=== PATIENT | female | born 1950 | race Two or more races ===

== ENCOUNTER 2021-09-28 11:55 | Inpatient (IN) | payer MEDICAID, OTHER ==
[~2021-09-28] VITALS: Ht 144.8 cm; Wt 72.3 kg
[2021-09-28 14:21] LABS: Basophils # (auto) 0.1 10 ^3/uL (0-0.2); Basophils % (auto) 1.1 % (0.0-2.0); Eosinophils # (auto) 0.1 10 ^3/uL (0-0.8); Hematocrit 44.3 % (36.0-46.0); Hemoglobin 14.7 g/dL (12.2-16.2); Lymphocytes # (auto) 2.1 10 ^3/uL (0.4-5.4); Lymphocytes % (auto) 26.2 % (10.0-50.0); Mean Corpuscular Hemoglobin 31.7 pg (28.0-32.0); Mean Corpuscular Hgb Conc. 33.1 g/dL (32.0-36.0); Mean Corpuscular Volume 95.9 fL (80.0-100.0); Monocytes # (auto) 0.6 10 ^3/uL (0-1.3); Monocytes % (auto) 7.6 % (0.0-12.0); Neutrophils # (auto) 5.1 10 ^3/uL (1.6-8.6); Neutrophils % (auto) 64.1 % (37.0-80.0); Nucleated Red Blood Cells % 0.1 %; Red Blood Cells 4.62 10^6/uL (4.0-5.20); Red Cell Distribution Width 14.7 % (11.8-14.3)
[2021-09-28 14:43] LABS: Albumin 3.9 g/dL (3.4-5.0); Calcium 9.1 mg/dL (8.5-10.1); Potassium 4.3 mmol/L (3.5-5.1)
[2021-09-28 14:48] LABS: BUN/Creatinine Ratio 33.3; Bilirubin, Total 0.4 mg/dL (0.2-1.0); Total Protein 7.6 g/dL (6.4-8.2)
[2021-09-28] MEDS ORDERED: ONDANSETRON HCL 4 MG/2 ML VIAL IV ONE (15:30)
[2021-09-28] MEDS ORDERED: MORPHINE SULFATE INJ 2 MG/ml SYRG IV ONE (15:30)
[2021-09-28] MEDS ORDERED: MORPHINE SULFATE 4 MG/ML SYR/VIAL IV PRN (19:00)
[2021-09-28] MEDS ORDERED: ONDANSETRON HCL 4 MG/2 ML VIAL IV PRN (19:00)
[2021-09-28] MEDS ORDERED: ACETAMINOPHEN 325 MG TAB PO PRN ×2 (19:00)
[2021-09-28] MEDS ORDERED: TEMAZEPAM 15 MG CAP PO PRN (19:00)
[2021-09-28] MEDS ORDERED: hydrALAZINE HCL 20 MG/ML VL IV PRN (19:00)
[2021-09-28] MEDS ORDERED: DOCUSATE SOD 100 MG CAP PO PRN (19:00)
[2021-09-28 19:28] LABS: Urine Bacteria MOD /hpf (None Seen); Urine Blood Negative /uL (Negative); Urine Specific Gravity 1.007 (1.001-1.035); Urine WBC 10 /hpf (0 - 5)
[2021-09-28 19:59] LABS: Bilirubin, Direct 0.2 mg/dL (0-0.2); Bilirubin, Total 0.6 mg/dL (0.2-1.0)
[2021-09-28] MEDS: ATORVASTATIN 20 MG TAB PO SCH (21:58)
[2021-09-28] MEDS: LACTATED RINGER'S 1,000 ML IV SCH (21:58)
[2021-09-29 00:40] VITALS: BP 118/63
[2021-09-29] MEDS ORDERED: ATOR10TA52 PO (01:56)
[2021-09-29] MEDS: HYDROcodone-ACET 5/325MG TAB PO PRN ×3 (02:36→19:01)
[2021-09-29 05:00] VITALS: BP 131/61
[2021-09-29 06:32] LABS: Basophils # (auto) 0.1 10 ^3/uL (0-0.2); Basophils % (auto) 1.2 % (0.0-2.0); Eosinophils # (auto) 0.2 10 ^3/uL (0-0.8); Eosinophils % (auto) 2.5 % (0.0-7.0); Hematocrit 39.4 % (36.0-46.0); Hemoglobin 13.2 g/dL (12.2-16.2); Lymphocytes # (auto) 2.1 10 ^3/uL (0.4-5.4); Lymphocytes % (auto) 28.9 % (10.0-50.0); Mean Corpuscular Hemoglobin 31.7 pg (28.0-32.0); Mean Corpuscular Hgb Conc. 33.4 g/dL (32.0-36.0); Monocytes # (auto) 0.5 10 ^3/uL (0-1.3); Monocytes % (auto) 7.1 % (0.0-12.0); Neutrophils # (auto) 4.4 10 ^3/uL (1.6-8.6); Neutrophils % (auto) 60.3 % (37.0-80.0); Red Blood Cells 4.15 10^6/uL (4.0-5.20); Red Cell Distribution Width 14.8 % (11.8-14.3); White Blood Cell 7.2 10^3/uL (4.4-10.8)
[2021-09-29 06:50] LABS: Potassium 4.3 mmol/L (3.5-5.1)
[2021-09-29 06:54] LABS: Albumin 3.1 g/dL (3.4-5.0); BUN/Creatinine Ratio 28.8; Calcium 8.5 mg/dL (8.5-10.1)
[2021-09-29 06:56] LABS: Bilirubin, Total 0.6 mg/dL (0.2-1.0); Total Protein 6.2 g/dL (6.4-8.2)
[2021-09-29] MEDS: LACTATED RINGER'S 1,000 ML IV SCH (08:20)
[2021-09-29 09:00] VITALS: BP 119/61
[2021-09-29] MEDS: GADOTERATE MEG 10 MMOL/20ml INJ (0.5MMOL/ml) IV ONE (09:12)
[2021-09-29] MEDS ORDERED: PANTOPRAZOLE 40 MG/10 ML VIAL INJ IV SCH (10:00)
[2021-09-29] MEDS: ENOXAPARIN SOD 40 MG/0.4 ML SYRINGE SC SCH (10:17)
[2021-09-29] MEDS: SUCRALFATE 1 GM/10 ML ORAL SUSP PO SCH ×3 (11:30→22:19)
[2021-09-29 13:00] VITALS: BP 121/78
[2021-09-29 16:44] VITALS: BP 124/62
[2021-09-29 17:39] LABS: INR 0.95 (0.9-1.15); Partial Thromboplastin Time 29.9 sec (23.6-33.0)
[2021-09-29 22:00] VITALS: BP 98/51
[2021-09-29] MEDS: ATORVASTATIN 20 MG TAB PO SCH (22:19)
[2021-09-29] MEDS: PANTOPRAZOLE 40 MG/10 ML VIAL INJ IV SCH (22:19)
[2021-09-30 05:00] VITALS: BP 147/77
[2021-09-30] MEDS: HYDROcodone-ACET 5/325MG TAB PO PRN (06:31)
[2021-09-30] MEDS: SUCRALFATE 1 GM/10 ML ORAL SUSP PO SCH ×4 (06:37→21:54)
[2021-09-30] MEDS ORDERED: diphenhdrAMINE HCL 50 MG/1 ML VL ONE (08:27)
[2021-09-30] MEDS ORDERED: fentaNYL CITRATE 100 MCG/2 ML VL ONE (08:27)
[2021-09-30] MEDS ORDERED: LIDOCAINE VISCOUS 2% 15ML UD ONE (08:27)
[2021-09-30] MEDS ORDERED: MIDAZOLAM HCL 5 MG/ML-1ML VIAL ONE (08:27)
[2021-09-30 09:00] VITALS: BP 121/51
[2021-09-30] MEDS: PANTOPRAZOLE 40 MG/10 ML VIAL INJ IV SCH ×2 (10:00→21:54)
[2021-09-30] MEDS: ENOXAPARIN SOD 40 MG/0.4 ML SYRINGE SC SCH (10:00)
[2021-09-30 12:54] VITALS: BP 111/55
[2021-09-30 17:00] VITALS: BP 126/68
[2021-09-30 20:00] VITALS: BP 105/69
[2021-09-30] MEDS: ATORVASTATIN 20 MG TAB PO SCH (21:54)
[2021-09-30 22:00] VITALS: BP 105/69
[2021-10-01 05:00] VITALS: BP 109/59
[2021-10-01 05:27] LABS: Basophils # (auto) 0.1 10 ^3/uL (0-0.2); Basophils % (auto) 1.3 % (0.0-2.0); Eosinophils # (auto) 0.2 10 ^3/uL (0-0.8); Eosinophils % (auto) 2.8 % (0.0-7.0); Hematocrit 40.5 % (36.0-46.0); Hemoglobin 13.6 g/dL (12.2-16.2); Lymphocytes # (auto) 2.2 10 ^3/uL (0.4-5.4); Lymphocytes % (auto) 28.5 % (10.0-50.0); Mean Corpuscular Hemoglobin 31.7 pg (28.0-32.0); Mean Corpuscular Hgb Conc. 33.6 g/dL (32.0-36.0); Mean Corpuscular Volume 94.4 fL (80.0-100.0); Monocytes # (auto) 0.6 10 ^3/uL (0-1.3); Monocytes % (auto) 7.4 % (0.0-12.0); Neutrophils # (auto) 4.5 10 ^3/uL (1.6-8.6); Red Blood Cells 4.29 10^6/uL (4.0-5.20); Red Cell Distribution Width 14.6 % (11.8-14.3); White Blood Cell 7.6 10^3/uL (4.4-10.8)
[2021-10-01 05:52] LABS: BUN/Creatinine Ratio 35.3; Calcium 8.5 mg/dL (8.5-10.1)
[2021-10-01] MEDS: SUCRALFATE 1 GM/10 ML ORAL SUSP PO SCH ×4 (06:10→21:05)
[2021-10-01 09:00] VITALS: BP 123/67
[2021-10-01] MEDS: PANTOPRAZOLE 40 MG/10 ML VIAL INJ IV SCH ×2 (10:30→21:05)
[2021-10-01] MEDS: ENOXAPARIN SOD 40 MG/0.4 ML SYRINGE SC SCH (10:31)
[2021-10-01 13:00] VITALS: BP 121/57
[2021-10-01 17:00] VITALS: BP 117/69
[2021-10-01] MEDS: ATORVASTATIN 20 MG TAB PO SCH (21:05)
[2021-10-01 21:40] VITALS: BP 114/63
[2021-10-02 04:54] VITALS: BP 127/65
[2021-10-02] MEDS: SUCRALFATE 1 GM/10 ML ORAL SUSP PO SCH ×4 (06:09→21:25)
[2021-10-02 08:23] VITALS: BP 150/83
[2021-10-02 08:30] VITALS: BP 126/58
[2021-10-02] MEDS: PANTOPRAZOLE 40 MG/10 ML VIAL INJ IV SCH ×2 (11:04→21:25)
[2021-10-02] MEDS: ENOXAPARIN SOD 40 MG/0.4 ML SYRINGE SC SCH (11:04)
[2021-10-02 12:53] VITALS: BP 117/56
[2021-10-02 16:57] VITALS: BP 119/68
[2021-10-02] MEDS: ATORVASTATIN 20 MG TAB PO SCH (21:25)
[2021-10-02] MEDS: HYDROcodone-ACET 5/325MG TAB PO PRN (21:44)
[2021-10-02 21:51] VITALS: BP 114/66
[2021-10-03 04:25] VITALS: BP 138/69
[2021-10-03] MEDS: SUCRALFATE 1 GM/10 ML ORAL SUSP PO SCH ×2 (06:10→12:30)
[2021-10-03 08:42] VITALS: BP 139/104
[2021-10-03] MEDS: ENOXAPARIN SOD 40 MG/0.4 ML SYRINGE SC SCH (09:34)
[2021-10-03] MEDS: PANTOPRAZOLE 40 MG/10 ML VIAL INJ IV SCH (09:34)
[2021-10-03] MEDS ORDERED: SUCR1SUS10 PO (14:14)
[2021-10-03] MEDS ORDERED: ATOR20TA50 PO (14:14)
[2021-10-03] MEDS ORDERED: PANT40TA2 PO (14:14)
[2021-10-03 16:14] VITALS: BP 131/86
[2021-10-03] MEDS ORDERED: CLAR1TAB21 PO (17:00)
[2021-10-03] MEDS ORDERED: AMOX500C2 PO (17:00)
== END 2021-10-03 17:27 | disposition home or self-care (01) | DRG 241 ==
LOC: ER 11:55 → OVERFLOW 18:47 → WEST WING 23:44 → TELE-WESTW 09-30 11:34
PROVIDERS: ADMIT Registered Nurse; ATTEND Internal Medicine
PROC: 0DB68ZX Excision of Stomach, Via Natural or Artificial Opening Endoscopic, Diagnostic (ICD-10-PCS; principal; 2021-09-30 09:22)
DX: K29.70 Gastritis, unspecified, without bleeding (principal); K86.2 Cyst of pancreas; E66.01 Morbid (severe) obesity due to excess calories; K43.9 Ventral hernia without obstruction or gangrene; Z20.822 Contact with and (suspected) exposure to COVID-19; I10 Essential (primary) hypertension; E78.5 Hyperlipidemia, unspecified; R00.1 Bradycardia, unspecified; B96.81 Helicobacter pylori [H. pylori] as the cause of diseases classified elsewhere; E78.00 Pure hypercholesterolemia, unspecified; Z68.34 Body mass index [BMI] 34.0-34.9, adult; Z80.1 Family history of malignant neoplasm of trachea, bronchus and lung; Z82.49 Family history of ischemic heart disease and other diseases of the circulatory system; Z83.3 Family history of diabetes mellitus; Z90.49 Acquired absence of other specified parts of digestive tract; Z82.3 Family history of stroke
CPT/HCPCS: 36415; 43239; 71045; 74176; 74183; 78452; 80048; 80053; 80061; 81001; 82150; 82247; 82248; 82962; 83036; 83690; 84439; 84443; 85025; 85610; 85730; 86301; 86677; 87493; 93005; 93017; 93306; 96361; 96374; 96375; C9113; G0378; J2250; J2405